=== PATIENT | male | born 1955 | race African-American/Black ===

== ENCOUNTER 2016-12-10 10:26 | Emergency (ER) | payer MEDICAID, OTHER ==
[~2016-12-10] VITALS: Ht 172.7 cm; Wt 70.0 kg
[2016-12-10 11:16] LABS: BASOPHILS % 0.6 % (0.0-2.0); EOSINOPHILS % 1.8 % (0.0-5.0); HEMOGLOBIN. 14.8 g/dL (14.0-18.0); LYMPHOCYTES % 46.5 % (20.0-50.0); MEAN CORPUSCULAR HEMOGLOBIN 31.5 pg (28.0-32.0); MEAN CORPUSCULAR VOLUME 91.6 fL (80.0-94.0); MEAN PLATELET VOLUME 8.1 fl (7.4-10.4); NEUTROPHILS % 42.1 % (40.0-76.0); PLATELET 242 x1000/uL (130-400); RED BLOOD CELL COUNT 4.69 mill/uL (4.7-6.1)
[2016-12-10 11:22] LABS: CHLORIDE 109 mEq/L (98-107)
[2016-12-10 11:30] LABS: CARBON DIOXIDE 27 mEq/L (21-32)
[2016-12-10 12:32] VITALS: BP 152/83
[2016-12-10] MEDS ORDERED: CEPHALEXIN 500MG CAPSULE PO ONE (13:30)
[2016-12-10] MEDS ORDERED: ACETAMINOPHEN 325MG TABLET PO ONE (13:45)
== END 2016-12-10 13:43 | disposition home or self-care (01) ==
LOC: ER 10:45
DX: L89.899 Pressure ulcer of other site, unspecified stage (principal); L03.113 Cellulitis of right upper limb; Z86.73 Personal history of transient ischemic attack (TIA), and cerebral infarction without residual deficits
CPT/HCPCS: 36415; 71010; 73130; 80053; 85025; 87040; 99285; Z7610